=== PATIENT | female | born 1945 | race African-American/Black ===

== ENCOUNTER 2020-10-26 09:46 | Emergency (ER) | payer BC, OTHER ==
[~2020-10-26] VITALS: Ht 157.5 cm; Wt 84.8 kg
--- NOTE | 2020-10-26 10:00 | NUR ---
[id number]
[2020-10-26] MEDS ORDERED: HYDROCODONE/APAP 10-325 MG TABLET PO ONE (10:30)
[2020-10-26] MEDS ORDERED: LET TOPICAL SOLUTION 8 ML UDC TP ONE (10:30)
[2020-10-26] MEDS ORDERED: LIDOCAINE HCL 2% 20 ML VIAL IJ ONE (10:30)
[2020-10-26] MEDS ORDERED: SODIUM BICARBONATE 4.2 % (NEUT) 5 ML VIAL TP ONE (10:30)
[2020-10-26] MEDS ORDERED: SODIUM BICARBONATE 4.2 % (NEUT) 5 ML VIAL ONE (10:32)
[2020-10-26] MEDS ORDERED: HYDROCODONE/APAP 10-325 MG TABLET ONE (10:32)
[2020-10-26] MEDS ORDERED: LET TOPICAL SOLUTION 8 ML UDC ONE (10:33)
[2020-10-26] MEDS ORDERED: LIDOCAINE HCL 2% 20 ML VIAL ONE (10:33)
[2020-10-26] MEDS ORDERED: NEOMY/BACITRA/POLYMYXIN B OINT UD PACKET TP ONE ×2 (11:00→11:04)
[2020-10-26] MEDS ORDERED: ASPIRIN (11:13)
[2020-10-26] MEDS ORDERED: FURO20TA90 (11:13)
[2020-10-26] MEDS ORDERED: BRILLINTA (11:13)
[2020-10-26] MEDS ORDERED: NEURONTIN (11:13)
[2020-10-26] MEDS ORDERED: METOPROLOL (11:13)
[2020-10-26] MEDS ORDERED: IRON (11:13)
[2020-10-26] MEDS ORDERED: CRESTOR (11:13)
--- NOTE | 2020-10-26 11:13 | NUR ---
PT UNABLE TO RECALL DOSAGES OF MEDICATIONS.
--- NOTE | 2020-10-26 12:44 | NUR ---
PT CALLING FRIEND FOR RIDE.
--- NOTE | 2020-10-26 12:53 | NUR ---
Patient discharged to home in stable condition. Written and verbal after care instructions given. Patient verbalizes understanding of instructions. Stressed follow up or return to ER for worsening s/s.PT WALKS IN STEADY GAIT. NO SIGN OF DISTRESS. PT DENIES ANY N/V OR DIZZINESS.
== END 2020-10-26 12:54 | disposition home or self-care (01) ==
LOC: ER 09:46
DX: S63.283A Dislocation of proximal interphalangeal joint of left middle finger, initial encounter (principal); S01.511A Laceration without foreign body of lip, initial encounter; W01.0XXA Fall on same level from slipping, tripping and stumbling without subsequent striking against object, initial encounter; Y92.89 Other specified places as the place of occurrence of the external cause; I25.10 Atherosclerotic heart disease of native coronary artery without angina pectoris; E78.5 Hyperlipidemia, unspecified; E11.9 Type 2 diabetes mellitus without complications; Z79.899 Other long term (current) drug therapy; Z79.82 Long term (current) use of aspirin; Z88.0 Allergy status to penicillin; M19.042 Primary osteoarthritis, left hand; S09.90XA Unspecified injury of head, initial encounter; R40.2412 Glasgow coma scale score 13-15, at arrival to emergency department; Z79.02 Long term (current) use of antithrombotics/antiplatelets
CPT/HCPCS: 26770; 70450; 73140 ×2; 82962; 99284; J3490 ×2; A4663